=== PATIENT | female | born 1985 | race Caucasian/White ===

== ENCOUNTER 2020-07-06 14:45 | Inpatient (IN) | payer OTHER ==
[~2020-07-06] VITALS: Ht 165.1 cm; Wt 68.0 kg
[2020-07-06] MEDS ORDERED: ALBUTEROL0.63 MG/3 (15:27)
[2020-07-06] MEDS ORDERED: TRAZODONE HCL50 MG PO (15:27)
[2020-07-06] MEDS ORDERED: PEPCID20 MG PO (15:27)
[2020-07-06] MEDS ORDERED: BUSPIRONE HCL5 MG PO (15:27)
[2020-07-06] MEDS ORDERED: BREO ELLIPTA 21 EACH (15:27)
--- NOTE | 2020-07-06 16:53 | Diagnostic Imaging Report ---
EXAM: CT Chest WITH contrast- Pulmonary Embolism Protocol INDICATION: Concern for pulmonary thromboembolic disease. Chest pain. Shortness of breath. COMPARISON: None TECHNIQUE: Chest was scanned utilizing a multidetector helical scanner from the lung apex through the level of the diaphragm after administration of IV contrast. Thin section reconstructions were obtained with special concentration on the pulmonary arteries. Coronal and sagittal reformations were obtained. Pulmonary embolism protocol was performed. IV CONTRAST: 100 cc of Isovue 370 RADIATION DOSE: Total DLP: 235 mGy*cm Dose modulation, iterative reconstruction, and/or weight based adjustment of the mA/kV was utilized to reduce the radiation dose to as low as reasonably achievable. COMPLICATIONS: None FINDINGS: LINES/ TUBES: None. PULMONARY ARTERIES: No evidence of pulmonary arterial filling defect to the level of the distal proximal subsegmental branches. Main pulmonary artery is of normal caliber measuring up to 2.3 cm. LUNGS AND AIRWAYS: Large airways are patent. There are multifocal opacities at the lung bases. PLEURA: Negative for effusion or pneumothorax. HEART AND MEDIASTINUM: The thyroid gland is normal. No mediastinal, hilar or axillary lymphadenopathy. The heart is normal in size. Negative for right ventricular enlargement. There is no pericardial effusion. Thoracic aorta is unremarkable. UPPER ABDOMEN: Unremarkable. Small hiatal hernia is noted. BONES: No acute osseous abnormality. No suspicious lytic or blastic lesion. SOFT TISSUES: Unremarkable. IMPRESSION: 1. Negative for pulmonary embolism or secondary signs of right heart strain. 2. Multifocal airspace opacities at the lung bases are concerning for multifocal pneumonia, possibly aspiration. Recommend follow-up to resolution. Signed by: Luis Thorpe MD on 07/06/2020 4:50 PM
--- NOTE | 2020-07-06 17:27 | NUR ---
called [facility] for transport
[2020-07-06] MEDS ORDERED: LEVOFLOXACIN 750MG/D5W 150ML 150 ML IV ONE ×2 (17:30→17:37)
[2020-07-06] MEDS ORDERED: SODIUM CHLORIDE 0.9% 1000ML 1,000 ML ONE (17:36)
[2020-07-06] MEDS ORDERED: SODIUM CHLORIDE FLUSH 10 ML SYR INJ PRN (17:45)
[2020-07-06] MEDS ORDERED: ASPIRIN 81 MG CHEW TAB PO ONE (17:45)
--- NOTE | 2020-07-06 18:03 | Emergency Department Note ---
History of Present Illnes History of Present Illness Chief Complaint: COVID PUI History of Present Illness This is a 34 year old female 1.5 months of SOB and CP worse with exertion. Had CXR that showed bilateral plate like atelectisis. Completed Z pack, but symptoms persist. Hx of asthma, but states symptoms are different than typical Asthma exacerbation. Symptoms better briefly after albuterol neg. Historian: Patient Arrival Mode: Car [employer] Required: No Onset (how long ago): month(s) Location: chest Quality: dull Radiation: Reports non-radiation Severity: moderate Onset quality: gradual Duration (how long): month(s) Timing of current episode: intermittent Progression: worsening Chronicity: new Context: Denies trauma/injury Relieving factors: rest Exacerbating factors: other (exertion) Associated symptoms: Reports chest pain, Reports shortness of breath; Denies cough, Denies fever/chills, Denies nausea/vomiting, Denies syncope, Denies weakness Past Medical/Family History Physician Review I have reviewed the patient's past medical and family history. Any updates have been documented here. Past Medical History Recent Fever: No Clinical Suspicion of Infectio: No New/Unexplained Change in Ment: No Past Medical History: Asthma, Anxiety Past Surgical History: T&A Social History Smoking Cessation: Never Smoker Alcohol Use: None Any Illegal Drug Use: No Other Any Pre-Existing Lines (PICC,: No Review of Systems Review of Systems Constitutional: Denies chills, Denies fever EENTM: Denies throat pain Cardiovascular: Reports as per HPI Respiratory: Reports as per HPI Gastrointestinal: Denies abdominal pain, Denies diarrhea, Denies vomiting Genitourinary: Denies dysuria Musculoskeletal: Denies back pain Integumentary: Denies rash Neurological: Denies headache Hematological/Lymphatic: Denies blood clots, Denies easy bleeding Physical Exam Related Data Allergies: Coded Allergies: No Known Allergies (Unverified , 07/06/20) Triage Vital Signs Vital Signs Date Time Temp Pulse Resp B/P (MAP) Pulse Ox O2 Delivery O2 Flow Rate FiO2 07/06/20 14:48 98.3 73 16 151/83 96 Room Air Physical Exam CONSTITUTIONAL Constitutional: Present well-developed, Present well-nourished, Present other (completes full sentences, handles secretions.) HENT HENT: Present normocephalic, Present atraumatic, Present oropharynx clear/moist, Present nose normal HENT L/R: Present left ext ear normal, Present right ext ear normal EYES Eyes: Reports PERRL, Reports conjunctivae normal NECK Neck: Present ROM normal PULMONARY Pulmonary: Present effort normal, Present breath sounds normal CARDIOVASCULAR Cardiovascular: Present regular rhythm, Present heart sounds normal, Present capillary refill normal, Present normal rate GASTROINTESTINAL Abdominal: Present soft, Present nontender, Present bowel sounds normal GENITOURINARY Genitourinary: Present exam deferred SKIN Skin: Present warm, Present dry MUSCULOSKELETAL Musculoskeletal: Present ROM normal NEUROLOGICAL Neurological: Present alert, Present oriented x 3, Present no gross motor or sensory deficits PSYCHOLOGICAL Psychological: Present mood/affect normal, Present judgement normal Results Laboratory Laboratory comments WBC 21.9, HGB 14.1, HCT 46, troponin neg, LFT's neg, BMP neg. HCG neg. Imaging Imaging Comments EXAM: CT Chest WITH contrast- Pulmonary Embolism Protocol INDICATION: Concern for pulmonary thromboembolic disease. Chest pain. Shortness of breath. COMPARISON: None TECHNIQUE: Chest was scanned utilizing a multidetector helical scanner from the lung apex through the level of the diaphragm after administration of IV contrast. Thin section reconstructions were obtained with special concentration on the pulmonary arteries. Coronal and sagittal reformations were obtained. Pulmonary embolism protocol was performed. IV CONTRAST: 100 cc of Isovue 370 RADIATION DOSE: Total DLP: 235 mGy*cm Dose modulation, iterative reconstruction, and/or weight based adjustment of the mA/kV was utilized to reduce the radiation dose to as low as reasonably achievable. COMPLICATIONS: None FINDINGS: LINES/ TUBES: None. PULMONARY ARTERIES: No evidence of pulmonary arterial filling defect to the level of the distal proximal subsegmental branches. Main pulmonary artery is of normal caliber measuring up to 2.3 cm. LUNGS AND AIRWAYS: Large airways are patent. There are multifocal opacities at the lung bases. PLEURA: Negative for effusion or pneumothorax. HEART AND MEDIASTINUM: The thyroid gland is normal. No mediastinal, hilar or axillary lymphadenopathy. The heart is normal in size. Negative for right ventricular enlargement. There is no pericardial effusion. Thoracic aorta is unremarkable. UPPER ABDOMEN: Unremarkable. Small hiatal hernia is noted. BONES: No acute osseous abnormality. No suspicious lytic or blastic lesion. SOFT TISSUES: Unremarkable. IMPRESSION: 1. Negative for pulmonary embolism or secondary signs of right heart strain. 2. Multifocal airspace opacities at the lung bases are concerning for multifocal pneumonia, possibly aspiration. Recommend follow-up to resolution. Procedures 12 Lead ECG Interpretation ECG Interpretation : ECG: ECG 1 [employer]: Interpreted by ED physician Date: Jul 06, 2020 Rhythm: sinus bradycardia BPM: 59 ST segments normal: Yes Clinical Impression: abnormal ECG Assessment & Plan Medical Decision Making MDM Differential dx includes, but not limited to: COVID, pneumonia, PE, ID, ACS, di ssection, AAA, pneumothorax, asthma exacerbation. CT shows pneumonia. Will admit for IV antibiotics and COVID testing. Patient failed outpatient abx, WBC 21, Sat 96% here with no wheezing/asthma exacerbation. Has asthma that requires frequent nebs, which would be expected to drop sat lower. Suspect COVID given age. Will admit to obs. Assessment & Plan Final Impression: (1) Pneumonia Depart Disposition: ADMITTED Last Vital Signs Date Time Temp Pulse Resp B/P (MAP) Pulse Ox O2 Delivery O2 Flow Rate FiO2 07/06/20 14:48 98.3 73 16 151/83 96 Room Air Home Meds Reported Medications Albuterol Sulfate (ALBUTEROL SULFATE) 0.63 Mg/3 Ml Vial.neb 07/06/20 Fluticasone/Vilanterol (Breo Ellipta 200-25 Mcg INH) 1 Each Blst.w.dev 07/06/20 Buspirone Hcl (BUSPIRONE HCL) 5 Mg Tablet, 10 MG PO DAILY, #60 TAB 07/06/20 Famotidine (PEPCID) 20 Mg Tablet, 20 MG PO DAILY, #60 TAB 07/06/20 Trazodone Hcl (TRAZODONE HCL) 50 Mg Tablet, 50 MG PO DAILY, #30 TAB 07/06/20 WING CARIAS MD Jul 06, 2020 15:36
[2020-07-06] MEDS ORDERED: SODIUM CHLORIDE 0.9% 1000ML 1,000 ML IV SCH (18:15)
--- NOTE | 2020-07-06 18:36 | NUR ---
report to ems
--- NOTE | 2020-07-06 18:55 | NUR ---
PATIENT ARRIVED BY STRETCHER VIA EMS. PATIENT IS AAOX4 ANDFOUND LYING IN BED IN NO ACUTE DISTRESS. PATIENT WAS EDUCATED ON FALL RISK PRECAUTIONS AND VERBALIZED UNDERSTANDING. CALL LIGHT AND BELONGINGS PLACED NEARBY. WILL CONTINUE TO MONITOR.
[2020-07-06 19:00] VITALS: BP 106/69
[2020-07-06 19:53] VITALS: BP 106/69
[2020-07-06] MEDS ORDERED: MULTI-VITAMIN1 EACH PO (20:04)
[2020-07-06] MEDS ORDERED: ALBUTEROL0.63 MG/3 INH (20:04)
[2020-07-06] MEDS ORDERED: ZYRTEC10 M3 PO (20:04)
[2020-07-06 21:00] VITALS: BP 106/69
[2020-07-06 21:22] LABS: CREATINE KINASE 18 IU/L (29-168)
[2020-07-06] MEDS ORDERED: ACETAMINOPHEN 325 MG TAB PO PRN (21:45)
[2020-07-06] MEDS ORDERED: BREO ELLIPTA INH PRN (22:45)
[2020-07-06] MEDS ORDERED: TRAZODONE HCL 50 MG TAB PO ONE (22:45)
[2020-07-06] MEDS ORDERED: ALBUTEROL SULF 0.083% NEB SOLN 3 ML NEB INH ONE (22:45)
[2020-07-07] VITALS (9 sets, daily range): BP systolic 95–113; BP diastolic 60–87
[2020-07-07] MEDS: GUAIFENESIN 200 MG/10 ML UDC PO PRN ×3 (06:23→20:56)
--- NOTE | 2020-07-07 06:50 | NUR ---
SBAR REPORT RECEIVED FROM PM SHIFT RN. PATIENT FOUND LYING IN BED IN NO ACUTE DISTRESS. NASAL CANNULA IN NARES. PATIENT AAOX4 AND DENIES ANY FURTHER NEEDS. PATIENT WAS EDUCATED ON FALL RISK PRECAUTIONS AND VOICED UNDERSTANDING. CALL LIGHT AND BELONGINGS PLACED NEARBY. WILL MONITOR CLOSELY.
[2020-07-07] MEDS: ALBUTEROL SULF 0.083% NEB SOLN 3 ML NEB INH SCH ×3 (07:00→23:00)
[2020-07-07 07:21] LABS: CREATINE KINASE 16 IU/L (29-168)
[2020-07-07] MEDS: BUSPIRONE HCL 5 MG TAB PO SCH (08:54)
[2020-07-07] MEDS: FAMOTIDINE 20 MG TAB PO SCH (08:54)
[2020-07-07] MEDS: LORATADINE 10 MG TAB PO SCH (08:54)
--- NOTE | 2020-07-07 10:04 | Consultation ---
DATE OF CONSULTATION: Pulmonary Critical Care Consultation CHIEF COMPLAINT: Coughing and wheezing. HISTORY OF PRESENT ILLNESS: The patient is a 34-year-old woman. She has a history of lifelong asthma. She uses Breo as well as a rescue inhaler and a nebulizer as needed at home. She is also six months . She complains of worsening dyspnea and cough over several days. She also has some increased dyspnea. She has not noted any fevers. She has no chest pain. When she came to the ER, she was found to have bilateral infiltrates suggestive of possible viral pneumonia and COVID test was obtained. PAST MEDICAL HISTORY: 1. Asthma. 2. No prior history of heart disease. 3. No prior history of hypertension. 4. No prior history of diabetes. PAST SURGICAL HISTORY: Tonsillectomy. ALLERGIES: NO KNOWN DRUG ALLERGIES. SOCIAL HISTORY: The patient is not actively smoking. She has smoked in the past. She is not a drinker. FAMILY HISTORY: Noncontributory. REVIEW OF SYSTEMS: The patient has no fever. There is no headache. She has no neck pain. She is not having any chest pain. She does have some cough and some dyspnea. She has no wheezing. She has no abdominal pain. She has no nausea or vomiting. She has no leg edema. PHYSICAL EXAMINATION: VITAL SIGNS: The patient is afebrile. The blood pressure is 100/61, saturation is 96% on 3 L and the pulse is 64. Respiratory rate is 16. HEENT: Shows no facial swelling or erythema. LYMPHATIC: Shows no submandibular, cervical or supraclavicular adenopathy. CARDIAC: Reveals regular rate and rhythm with normal S1 and S2. LUNGS: Auscultation of lungs reveals rhonchorous breath sounds bilaterally. There is no wheezing. ABDOMEN: Soft and nontender. There is no rebound or guarding. EXTREMITIES: Shows no leg edema or calf tenderness. There is no cyanosis or clubbing. SKIN: Shows no rashes. LABORATORY DATA: BUN to creatinine ratio is 11 to 0.6. Electrolytes are within normal limits. Amylase, lipase, and the liver function tests are normal. The white blood cell count is 21.9, hemoglobin is 14.1 and the platelet count is 330. RADIOGRAPHIC DATA: Chest CT shows multifocal airspace disease at the lung bases suggestive of possible pneumonia. IMPRESSION: 1. Asthma with acute exacerbation. 2. Atypical pneumonia, present on admission. 3. Six months . 4. Leukocytosis. PLAN: 1. The patient is awaiting her COVID test. 2. Continue current antibiotics. 3. Low-dose corticosteroids. 4. Bronchodilators. MD JEMAL Staley/BHARTI /[id number]
[2020-07-07 12:49] LABS: HEMATOCRIT 41.3 % (34.2-44.1); HEMOGLOBIN 13.2 g/dL (12.0-16.0); MEAN CORPUSCULAR HEMOGLOBIN 28.3 pg (28-32); MEAN CORPUSCULAR VOLUME 88.6 fL (81-99); PLATELET COUNT 262 x10e3/uL (140-360); RED BLOOD COUNT 4.66 x10e6/uL (3.6-5.1); RED CELL DISTRIBUTION WIDTH 12.9 % (11.7-14.4)
[2020-07-07 13:10] LABS: ALANINE AMINOTRANSFERASE 22 IU/L (0-55); ALBUMIN 3.8 g/dL (3.5-5.0); ALBUMIN/GLOBULIN RATIO 1.1 (0.8-2.0); ALKALINE PHOSPHATASE 103 IU/L (40-150); ANION GAP 14.3 mmol/L (8-16); BLOOD UREA NITROGEN 12 mg/dL (7-26); BUN/CREATININE RATIO 16 (6-25); CALCIUM 9.7 mg/dL (8.4-10.2); CARBON DIOXIDE 24 mmol/L (22-29); CHLORIDE 107 mmol/L (98-107); CREATININE, SERUM 0.74 mg/dL (0.57-1.11); EST GLOMERULAR FILTRATION RATE > 60 ML/MIN (60-); GLUCOSE 107 mg/dL (74-118); POTASSIUM 4.3 mmol/L (3.5-5.1); SODIUM 141 mmol/L (136-145)
[2020-07-07] MEDS ORDERED: LACTATED RINGER'S 2,000 ML INJ ONE (13:15)
[2020-07-07] MEDS: AZITHROMYCIN 500MG/NS 250 ML 250 ML IV SCH (13:35)
[2020-07-07 13:39] LABS: ERYTHROCYTE SEDIMENTATION RATE 28 mm/hr (0-20)
[2020-07-07 14:01] LABS: CREATINE KINASE 17 IU/L (29-168); EOSINOPHILS % (MANUAL) 1 % (0-7); LYMPHOCYTES % (MANUAL) 17 % (19-48); MONOCYTES % (MANUAL) 5 % (3.4-9.0); NEUTROPHILS % (MANUAL) 77 % (40-74)
[2020-07-07 14:02] LABS: POLYCHROMASIA FEW; RBC MORPHOLOGY COMMENT NORMAL
[2020-07-07 14:03] LABS: PLATELET ESTIMATE ADEQUATE; PLATELET MORPHOLOGY COMMENT FEW LARGE
--- NOTE | 2020-07-07 14:47 | Consultation ---
DATE OF CONSULTATION: REASON FOR CONSULTATION: Pneumonia concerned about COVID-19. HISTORY OF PRESENT ILLNESS: Ms. Girard is a very pleasant 34-year-old white female, who has just had a baby six months ago. The patient and her as well as the baby has been careful because we have COVID-19. Apparently, she has been sick for couple of weeks with some cough, not feeling well, fever. But the last few days, becoming short of breath. The patient who has history of asthma. She let her asthma to go a little bit too much, but because she was concerned about the baby. The patient comes in with shortness of breath and cough. She was admitted. She had a CT of the chest, which showed bilateral infiltrates suggestive of viral pneumonia, COVID-19 has been pending. She was tested for COVID-19 couple of weeks ago as well as her and they are all been negative as well as the baby. PAST MEDICAL HISTORY: Significant for asthma. PAST SURGICAL HISTORY: Tonsillectomy. ALLERGIES: NKA. SOCIAL HISTORY: There is no smoking, drug abuse or alcohol abuse. She used to smoke before. FAMILY HISTORY: Noncontributory. REVIEW OF SYSTEMS: She is just not feeling well, feverish, dry mouth, shortness of breath and cough which is dry. PHYSICAL EXAMINATION: GENERAL: She is currently alert, oriented. VITAL SIGNS: Stable, currently afebrile. HEENT: She is not icteric. NECK: Supple. CHEST: Crackles bilateral. HEART: S1-S2. ABDOMEN: Soft. Bowel sounds present. EXTREMITIES: No edema. SKIN: No rash. Her blood pressure is 97/63 with a heart rate of 64. She is currently on 3 L cannula. MEDICATIONS: She is on: 1. Claritin. 2. Pepcid. 3. BuSpar. 4. Robitussin. 5. Rocephin. 6. Azithromycin was started by me. 7. Multivitamin. 8. She was on Solu-Medrol [address] of the chest showed no evidence of pulmonary defect, dense negative for pulmonary embolism, but there is multifocal airspace opacity at lung bases concerning for multifocal pneumonia. IMPRESSION: 1. Pneumonia present on admission, concern for COVID. 2. Hypoxemia. 3. Asthma exacerbation. 4. Dehydration. COVID is still pending. We will give Rocephin, azithromycin. Recheck CBC. Recheck Chem panel. IV fluid. We will give her ringer lactate for 2 L and then at 125 mL an hour. We will keep her isolation for now. Further recommendations to follow. Discussed with the family. MD RADHA Peters/MODL /[id number]
[2020-07-07] MEDS: CEFTRIAXONE SOD 2 GM/NS 100 ML 100 ML IV SCH (15:00)
[2020-07-07 16:09] LABS: CREATINE KINASE MB < 1.00 ng/mL (0-4.3)
[2020-07-07] MEDS ORDERED: LEVOFLOXACIN 750MG/D5W 150ML IV SCH (17:45)
[2020-07-07] MEDS: TRAZODONE HCL 50 MG TAB PO SCH (20:56)
[2020-07-07] MEDS: METHYLPREDNISOLONE SOD SUCC 40 MG/ML VIAL 1ML IV SCH (20:56)
[2020-07-07] MEDS: BUDESONIDE/FORMOTEROL 160/4.5MCG INHALER INH SCH (20:56)
[2020-07-07] MEDS: LACTATED RINGER'S 1,000 ML INJ SCH (21:09)
[2020-07-08] VITALS (7 sets, daily range): BP systolic 107–116; BP diastolic 65–72
[2020-07-08] MEDS: GUAIFENESIN 200 MG/10 ML UDC PO PRN ×2 (04:33→19:46)
[2020-07-08] MEDS: LACTATED RINGER'S 1,000 ML INJ SCH ×3 (05:40→20:25)
[2020-07-08 05:42] LABS: BASOPHILS % 0.1 % (0.0-1.0); EOSINOPHILS % 0.1 % (0.0-6.0); HEMOGLOBIN 13.1 g/dL (12.0-16.0); LYMPHOCYTES % 7.1 % (18.0-39.1); MEAN CORPUSCULAR HEMOGLOBIN 29.2 pg (28-32); MEAN CORPUSCULAR HGB CONC 32.8 g/dL (31-35); MEAN CORPUSCULAR VOLUME 89.1 fL (81-99); MONOCYTES # (AUTO) 0.1 (0.2-0.8); MONOCYTES % 0.9 % (4.4-11.3); NEUTROPHILS # (AUTO) 13.3 (2.1-6.9); PLATELET COUNT 252 x10e3/uL (140-360); RED BLOOD COUNT 4.49 x10e6/uL (3.6-5.1); RED CELL DISTRIBUTION WIDTH 12.6 % (11.7-14.4)
[2020-07-08 06:00] LABS: ALANINE AMINOTRANSFERASE 25 IU/L (0-55); ALBUMIN 3.7 g/dL (3.5-5.0); ALBUMIN/GLOBULIN RATIO 1.1 (0.8-2.0); ALKALINE PHOSPHATASE 109 IU/L (40-150); ANION GAP 16.2 mmol/L (8-16); BLOOD UREA NITROGEN 9 mg/dL (7-26); BUN/CREATININE RATIO 13 (6-25); CALCIUM 9.6 mg/dL (8.4-10.2); CARBON DIOXIDE 23 mmol/L (22-29); CHLORIDE 105 mmol/L (98-107); EST GLOMERULAR FILTRATION RATE > 60 ML/MIN (60-); GLUCOSE 141 mg/dL (74-118); POTASSIUM 4.2 mmol/L (3.5-5.1); SODIUM 140 mmol/L (136-145)
[2020-07-08] MEDS: BUDESONIDE/FORMOTEROL 160/4.5MCG INHALER INH SCH ×2 (07:00→20:06)
[2020-07-08] MEDS: FAMOTIDINE 20 MG TAB PO SCH (08:41)
[2020-07-08] MEDS: LORATADINE 10 MG TAB PO SCH (08:41)
[2020-07-08] MEDS: METHYLPREDNISOLONE SOD SUCC 40 MG/ML VIAL 1ML IV SCH ×2 (08:41→20:25)
[2020-07-08] MEDS: BUSPIRONE HCL 5 MG TAB PO SCH (08:41)
[2020-07-08] MEDS: MULTIVITAMINS/MINERALS TAB PO SCH (08:41)
[2020-07-08] MEDS ORDERED: ALBUTEROL SULF 0.083% NEB SOLN 3 ML NEB NEB ONE (09:30)
--- NOTE | 2020-07-08 09:35 | Progress Note ---
DATE: 07/08/2020 SUBJECTIVE: Ms. Girard is a 34-year-old female who was breast-feeding. She has history of asthma, anxiety and depression, came to the emergency room complaining of cough, and shortness of breath that started three weeks ago. COVID test came back negative, but she was found to have pneumonia, so the plan we are going to transfer to the floor. PHYSICAL EXAMINATION: GENERAL: She is feeling a little better. VITAL SIGNS: Temperature is 97.5, blood pressure is 110/70. HEART: Regular rate. LABORATORY DATA: COVID test came back negative. Potassium 4.2, creatinine 0.70, glucose 141. White count went up to 14.57, hemoglobin 13.1. Blood cultures so far negative. The chest CT shows some infiltrates. No PE. ASSESSMENT: 1. COVID negative. 2. Bacterial pneumonia. 3. Hypoxemia. 4. Asthma exacerbation. 5. Dehydration. PLAN: At the present time is to continue IV antibiotics. Continue to monitor a white blood cells. COVID test came back negative, so patient is going to be transferred to the regular floor. All this was discussed with the patient. All questions were answered to satisfaction. MD MAKENZIE Cohen/BHARTI /[id number]
--- NOTE | 2020-07-08 09:41 | Progress Note ---
DATE: SUBJECTIVE: The patient is still complaining of difficulty taking a deep breath. She does not have wheezing. She does not have coughing. She has no fevers. PHYSICAL EXAMINATION: VITAL SIGNS: The patient is afebrile. The blood pressure is 110/70, saturation is 95% on 3 L and the pulse is 73. HEENT: No facial swelling or erythema. LYMPHATIC: No submandibular, cervical, or supraclavicular adenopathy. CARDIAC: Regular rate and rhythm with normal S1, S2. LUNGS: Auscultation of lungs shows clear breath sounds bilaterally. There is no wheezing. ABDOMEN: Soft, nontender. There is no rebound or guarding. EXTREMITIES: No leg edema or calf tenderness. There is no cyanosis or clubbing. LABORATORY DATA: White blood cell count is 14.57, hemoglobin is 13.1, and the platelet count is 252. The BUN to creatinine ratio is normal. The other electrolytes are within normal limits. IMPRESSION: 1. Asthma with acute exacerbation. 2. Atypical pneumonia. 3. Leukocytosis. PLAN: 1. The patient to receive nebulizer today. 2. Continue current inhaler regimen. 3. Continue current antibiotics. Helder Santizo MD LM/BHARTI /[id number]
--- NOTE | 2020-07-08 09:50 | NUR ---
PATIENT TRANSFERRED FROM 177 TO 210. REPORT CALLED TO MS2 UNIT RN
[2020-07-08] MEDS: AZITHROMYCIN 500MG/NS 250 ML 250 ML IV SCH (13:34)
[2020-07-08] MEDS: CEFTRIAXONE SOD 2 GM/NS 100 ML 100 ML IV SCH (13:34)
[2020-07-08] MEDS: ALBUTEROL SULF 0.083% NEB SOLN 3 ML NEB INH SCH ×2 (15:40→19:50)
--- NOTE | 2020-07-08 18:18 | Progress Note ---
DATE: SUBJECTIVE: Ms. Girard is feeling much better. Her oxygen demand has subsided significantly. LABORATORY DATA: Her COVID-19 was negative. Cultures are negative. White count is 14.57. Sodium 140, potassium 4.2 with creatinine 0.7. IMPRESSION: Community-acquired pneumonia, asthma exacerbation, on Rocephin, azithromycin, and Solu-Medrol as ordered. Continue to monitor. If she continued to improve, possible discharge home soon. MD RADHA Peters/MODL /[id number]
[2020-07-08] MEDS: TRAZODONE HCL 50 MG TAB PO SCH (20:25)
[2020-07-09] MEDS: GUAIFENESIN 200 MG/10 ML UDC PO PRN (02:51)
[2020-07-09] MEDS: LACTATED RINGER'S 1,000 ML INJ SCH ×2 (04:59→13:04)
[2020-07-09 05:15] VITALS: BP 119/71
[2020-07-09] MEDS: ALBUTEROL SULF 0.083% NEB SOLN 3 ML NEB INH SCH ×2 (07:05→15:05)
[2020-07-09] MEDS: BUDESONIDE/FORMOTEROL 160/4.5MCG INHALER INH SCH (07:20)
[2020-07-09 07:40] VITALS: BP 119/68
[2020-07-09 08:24] VITALS: BP 119/68
[2020-07-09] MEDS: LORATADINE 10 MG TAB PO SCH (08:59)
[2020-07-09] MEDS: BUSPIRONE HCL 5 MG TAB PO SCH (08:59)
[2020-07-09] MEDS: MULTIVITAMINS/MINERALS TAB PO SCH (08:59)
[2020-07-09] MEDS: FAMOTIDINE 20 MG TAB PO SCH (09:00)
--- NOTE | 2020-07-09 09:00 | NUR ---
ASSESSMENT: Spiritual concern Pt relieved. Pt states she may be discharged today. Pt states she has a 6 m/o daughter and is excited to go home and glad she isn't COVID+. Pt states her has been caring for their children during hospitalization. Intervention: Provided hospitality and empathic listening. Facilitated illness review. Provided information on how to reach plastic products sales representative, if needed. Outcome: Pt expressed appreciation for visit. No need to follow. CLARENCE RONDON [employer] Spiritual Care Department O: [phone]
[2020-07-09] MEDS: METHYLPREDNISOLONE SOD SUCC 40 MG/ML VIAL 1ML IV SCH (09:14)
[2020-07-09 11:46] VITALS: BP_SYST 101; BP_SYST 148; BP_DIAS 67; BP_DIAS 68
[2020-07-09] MEDS: AZITHROMYCIN 500MG/NS 250 ML 250 ML IV SCH (13:04)
[2020-07-09 15:23] VITALS: BP 113/72
[2020-07-09] MEDS: CEFTRIAXONE SOD 2 GM/NS 100 ML 100 ML IV SCH (16:18)
--- NOTE | 2020-07-09 19:27 | NUR ---
report given to oncoming nurse, walking rounds complete.
--- NOTE | 2020-07-09 21:12 | Progress Note ---
DATE: SUBJECTIVE: Ms. Girard is feeling better. She is off oxygen. She says she is off oxygen all day. REVIEW OF SYSTEMS: Otherwise unremarkable. PHYSICAL EXAMINATION: GENERAL: She is currently alert and oriented. VITAL SIGNS: Stable, currently afebrile. HEENT: She is not icteric. NECK: Supple. CHEST: Clear. HEART: S1 and S2. ABDOMEN: Soft. Bowel sounds present. EXTREMITIES: No edema. SKIN: No rash. IMPRESSION: Community-acquired pneumonia, asthma with acute exacerbation, improving. The patient will be discharged home with prednisone, steroid inhaler, albuterol inhaler. Follow up as an outpatient. I gave her a prescription for prednisone for 10 mg p.o. daily for 10 days. To see me in a couple of weeks. Further recommendations to follow. MD RADHA Peters/BHARTI /[id number]
--- NOTE | 2020-07-09 22:51 | Discharge Summary ---
HOSPITAL COURSE: Ms. Girard is a 34-year-old female with history of anxiety, asthma, came to the emergency room complaining of 3 weeks of cough, and shortness of breath. COVID test came back negative and she was found to have bacterial pneumonia. She has been on IV Rocephin and azithromycin and she is doing better. So, if it is okay with the consultants, she is going to go home today. PHYSICAL EXAMINATION: GENERAL: She is awake and alert. VITAL SIGNS: Temperature is 97.7, blood pressure is 119/68. HEART: Regular rate. LUNGS: Clear to auscultation. ABDOMEN: Soft. LABORATORY DATA: On the blood work white count is 14.57, hemoglobin 13.1, hematocrit 40. COVID test came back negative. Potassium 4.2, creatinine 0.7. The glucose was 141. The blood cultures were negative. DISCHARGE DIAGNOSES: 1. Bacterial pneumonia. 2. Asthma exacerbation. 3. Hypoxemia, resolved. 4. Dehydration, resolved. PLAN: White count is still elevated, the patient has been on steroids, switch her to p.o. antibiotics. COVID test came back as probably negative. Follow up with me in one week. Please see home medication reconciliation list. She is to continue her neb treatments, ProAir and Breo inhalers. She is to call me or come back to the emergency room if any recurrent problem. Please see home medication reconciliation list. MD MAKENZIE Cohen/BHARTI /[id number]
== END 2020-07-09 19:00 | disposition home or self-care (01) | DRG 194 ==
LOC: FSED 15:07 → ERHOLD 17:41 → INTOOBSV 17:41 → IMCU 19:55 → MED/SURG2 07-08 09:50 → OBSVTOIN 07-08 12:35
PROVIDERS: ADMIT Internal Medicine; ATTEND Internal Medicine
DX: J15.9 Unspecified bacterial pneumonia (principal); J45.901 Unspecified asthma with (acute) exacerbation; F41.9 Anxiety disorder, unspecified; F32.9 Major depressive disorder, single episode, unspecified; Z11.59 Encounter for screening for other viral diseases; R09.02 Hypoxemia; E86.0 Dehydration
CPT/HCPCS: 36415; 71260; 80048; 80053; 80076; 81025; 82550; 82553; 84484; 85007; 85025; 85027; 85379; 85651; 86140; 87040; 87070; 87205; 93005; 94640; 99285; G0378; J0456; J0696; J2920; J7030; J7121